=== PATIENT | female | born 1975 | race Caucasian/White ===

== ENCOUNTER 2019-01-22 13:52 | Outpatient (CLI) | payer MEDICAID ==
[~2019-01-22 13:52] MED LIST: ALPR-624 PO; AMPH10TA23 PO; VALA-7 PO
== END 2019-01-22 23:59 | disposition home or self-care (01) ==
LOC: LAB 13:52
PROVIDERS: ATTEND Obstetrics & Gynecology
DX: O20.0 Threatened abortion (principal)
CPT/HCPCS: 36415; 84144; 84702; 86900; 86901